=== PATIENT | male | born 1975 | race Caucasian/White ===

== ENCOUNTER → 2020-01-22 | Outpatient (CLI) | payer OTHER ==
--- NOTE | 2020-01-22 11:28 | REP ---
KUB ABDOMEN AND PELVIS: Two KUB films of abdomen and pelvis performed. Bowel gas pattern is normal. Mild scattered fecal material is seen throughout the colon. No dilated small bowel loops are seen. There are a few phleboliths in the pelvis. The visualized osseous structures are unremarkable. IMPRESSION: Mild scattered fecal material throughout the colon. No evidence of bowel obstruction. Electronically Signed by Duran Yee MD 01/22/2020 12:48 P
== END ==
LOC: M WUC 10:04
PROVIDERS: ATTEND Physician Assistant
DX: K59.00 Constipation, unspecified (principal); R10.84 Generalized abdominal pain

== ENCOUNTER 2020-10-11 01:18 | Emergency (ER) | payer MEDICAID, SELFPAY ==
[~2020-10-11] VITALS: Ht 175.3 cm; Wt 88.6 kg
[2020-10-11] MEDS ORDERED: OXAZEPAM 15 MG CAP PO ONE (02:15)
--- NOTE | 2020-10-11 02:33 | ECGEPIP ---
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
[2020-10-11 02:48] LABS: BASO # 0.1 10^3/uL (0.0-0.2); BASO % 1.2 % (0.0-1.0); EOS # 0.1 10^3/uL (0.0-0.5); HEMATOCRIT 43.3 % (42.0-52.0); HEMOGLOBIN 14.4 g/dl (13.5-17.5); LYMPH % 41.3 % (24.0-44.0); MEAN CORPUSCULAR HEMOGLOBIN 31.9 pg (27.0-33.0); MEAN CORPUSCULAR HGB CONC 33.3 g/dl (32.0-36.5); MEAN CORPUSCULAR VOLUME 95.8 fl (80.0-96.0); MONO # 0.7 10^3/uL (0.0-0.8); MONO % 13.4 % (0.0-5.0); NEUTROPHILS # 2.1 10^3/uL (1.5-8.5); NEUTROPHILS % 41.9 % (36.0-66.0); PLATELET COUNT, AUTOMATED 152 10^3/uL (150-450); RED BLOOD COUNT 4.52 10^6/uL (4.30-6.10); WHITE BLOOD COUNT 4.9 10^3/uL (4.0-10.0)
[2020-10-11 03:24] LABS: ALBUMIN 4.1 GM/DL (3.2-5.2); ALT/SGPT 102 U/L (12-78); BILIRUBIN,DIRECT 0.1 MG/DL (0.0-0.2); BILIRUBIN,TOTAL 0.6 MG/DL (0.2-1.0); BLOOD UREA NITROGEN 4 MG/DL (7-18); CALCIUM LEVEL 8.8 MG/DL (8.5-10.1); CARBON DIOXIDE LEVEL 25 MEQ/L (21-32); CHLORIDE LEVEL 107 MEQ/L (98-107); CK-MB VALUE MASS 2.8 NG/ML (<3.6); CPK CREATINE PHOSPHOKINASE 398 U/L (39-308); CREATININE FOR GFR 0.75 MG/DL (0.70-1.30); ETHYL ALCOHOL (ETHANOL) 0.402 % (0.000-0.010); GLOMERULAR FILTRATION RATE > 60.0 (>60); GLUCOSE, FASTING 112 MG/DL (70-100); LIPASE 297 U/L (73-393); POTASSIUM SERUM 4.6 MEQ/L (3.5-5.1); SODIUM LEVEL 143 MEQ/L (136-145); TOTAL PROTEIN 8.6 GM/DL (6.4-8.2); TROPONIN I < 0.02 NG/ML (< 0.10)
[2020-10-11 03:45] VITALS: BP 137/86
== END 2020-10-11 04:27 | disposition home or self-care (01) ==
LOC: M ED 01:18
DX: F10.129 Alcohol abuse with intoxication, unspecified (principal); K70.9 Alcoholic liver disease, unspecified; R73.03 Prediabetes; I10 Essential (primary) hypertension; F17.200 Nicotine dependence, unspecified, uncomplicated; F12.10 Cannabis abuse, uncomplicated
CPT/HCPCS: 80048; 80076; 82550; 82553; 83036; 83690; 84443; 85025; 93005; 99284; G0480

== ENCOUNTER 2022-02-21 13:36 | Emergency (ER) | payer MEDICAID, OTHER ==
[~2022-02-21] VITALS: Ht 175.3 cm; Wt 84.1 kg
[2022-02-21 14:45] LABS: MEAN CORPUSCULAR HEMOGLOBIN 28.8 pg (27.0-33.0); MEAN CORPUSCULAR HGB CONC 32.6 g/dl (32.0-36.5); MEAN CORPUSCULAR VOLUME 88.5 fl (80.0-96.0); PLATELET COUNT, AUTOMATED 296 10^3/uL (150-450); RED BLOOD COUNT 4.86 10^6/uL (4.30-6.10)
[2022-02-21 15:12] LABS: AMPHETAMINES LEVEL URINE NEGATIVE (NEGATIVE); BARBITURATES URINE NEGATIVE (NEGATIVE); BENZODIAZEPINES URINE NEGATIVE (NEGATIVE); CANNABINOIDS URINE POSITIVE (NEGATIVE); COCAINE METABOLITE URINE NEGATIVE (NEGATIVE); METHADONE URINE NEGATIVE (NEGATIVE); OPIATES URINE NEGATIVE (NEGATIVE); PHENCYCLIDINE URINE NEGATIVE (NEGATIVE)
[2022-02-21 15:18] LABS: ACETAMINOPHEN LEVEL < 2.0 UG/ML (10.0-30.0); ALBUMIN 4.2 GM/DL (3.2-5.2); ALT/SGPT 177 U/L (12-78); BILIRUBIN,DIRECT 0.2 MG/DL (0.0-0.2); BILIRUBIN,TOTAL 0.5 MG/DL (0.2-1.0); BLOOD UREA NITROGEN 6 MG/DL (7-18); CALCIUM LEVEL 10.6 MG/DL (8.5-10.1); CARBON DIOXIDE LEVEL 25 MEQ/L (21-32); CHLORIDE LEVEL 104 MEQ/L (98-107); CREATININE FOR GFR 0.97 MG/DL (0.70-1.30); ETHYL ALCOHOL (ETHANOL) 0.231 % (0.000-0.010); FREE T4 0.65 NG/DL (0.76-1.46); GLOMERULAR FILTRATION RATE > 60.0 (>60); GLUCOSE, FASTING 111 MG/DL (70-100); POTASSIUM SERUM 4.6 MEQ/L (3.5-5.1); SALICYLATE LEVEL < 1.7 MG/DL (5.0-30.0); SODIUM LEVEL 138 MEQ/L (136-145); THYROID STIMULATING HORMONE 0.825 uIU/ML (0.358-3.740); TOTAL PROTEIN 8.4 GM/DL (6.4-8.2)
[2022-02-21] MEDS ORDERED: ABIL1TAB11 PO (20:29)
[2022-02-21 21:16] VITALS: BP 170/106
== END 2022-02-21 22:05 | disposition home or self-care (01) ==
LOC: M ED 13:36
DX: F10.10 Alcohol abuse, uncomplicated (principal); Y90.1 Blood alcohol level of 20-39 mg/100 ml; F33.9 Major depressive disorder, recurrent, unspecified; I47.1 Supraventricular tachycardia; F12.20 Cannabis dependence, uncomplicated

== ENCOUNTER 2023-01-05 17:03 | Inpatient (IN) | payer OTHER ==
[~2023-01-05] VITALS: Ht 175.3 cm; Wt 88.3 kg
[~2023-01-05 17:03] MED LIST: ABIL1TAB11 PO; FOLIC ACID 1MG TAB PO SCH; MULTIVITAMINS/MINERALS THERAP 1 TAB PO SCH
[2023-01-05] MEDS ORDERED: LORazepam 2 MG/ML 1ML VIAL IV STA (17:46)
[2023-01-05] MEDS ORDERED: LORazepam 2 MG TAB PO PRN ×2 (17:50→19:35)
[2023-01-05] MEDS ORDERED: levETIRAcetam INJection 1,000 MG in D5W 100 ML IV ONE (17:50)
[2023-01-05] MEDS ORDERED: NS 1,000 ML IV ONE (17:50)
[2023-01-05] MEDS ORDERED: ONDANSETRON 4MG 2ML VIAL IV ONE (18:20)
[2023-01-05 18:23] LABS: BASO # 0.1 10^3/uL (0.0-0.2); BASO % 0.7 % (0.0-1.0); EOS % 0.4 % (0.0-3.0); HEMOGLOBIN 14.2 g/dl (13.5-17.5); LYMPH # 0.7 10^3/uL (1.5-5.0); LYMPH % 9.6 % (24.0-44.0); MEAN CORPUSCULAR HEMOGLOBIN 33.6 pg (27.0-33.0); MEAN CORPUSCULAR HGB CONC 35.5 g/dl (32.0-36.5); MEAN CORPUSCULAR VOLUME 94.6 fl (80.0-96.0); MONO # 0.8 10^3/uL (0.0-0.8); MONO % 11.1 % (2.0-8.0); NEUTROPHILS # 5.4 10^3/uL (1.5-8.5); NEUTROPHILS % 77.9 % (36.0-66.0); PLATELET COUNT, AUTOMATED 134 10^3/uL (150-450); RED BLOOD COUNT 4.23 10^6/uL (4.30-6.10); WHITE BLOOD COUNT 6.9 10^3/uL (4.0-10.0)
[2023-01-05] MEDS ORDERED: LABETALOL 100MG/20ML VIAL IV STA (18:23)
[2023-01-05 18:43] VITALS: BP 168/105
[2023-01-05 18:53] LABS: ALBUMIN 4.5 G/DL (3.2-5.2); ALKALINE PHOSPHATASE 61 U/L (46-116); ALT/SGPT 145 U/L (7.0-40); AST/SGOT 172 U/L (<34); BILIRUBIN,DIRECT 0.6 MG/DL (<0.4); BILIRUBIN,TOTAL 1.5 MG/DL (0.3-1.2); BLOOD UREA NITROGEN 7 MG/DL (9-23); CARBON DIOXIDE LEVEL 22 MMOL/L (20-31); CHLORIDE LEVEL 92 MMOL/L (98-107); CREATININE FOR GFR 0.76 MG/DL (0.70-1.30); GLOMERULAR FILTRATION RATE > 60.0 (>60); GLUCOSE, FASTING 102 MG/DL (60-100); POTASSIUM SERUM 4.3 MMOL/L (3.5-5.1); SODIUM LEVEL 130 MMOL/L (136-145); TOTAL PROTEIN 8.3 G/DL (5.7-8.2)
[2023-01-05 19:04] LABS: CPK CREATINE PHOSPHOKINASE 240 U/L (46-171)
[2023-01-05 19:06] LABS: RSV AMPLIFICATION NEGATIVE (NEGATIVE)
[2023-01-05] MEDS ORDERED: HOME MED LIST COMPLETE! XX SCH (19:15)
[2023-01-05] MEDS ORDERED: LORazepam 2 MG/ML 1ML VIAL IV ONE (19:35)
[2023-01-05] MEDS ORDERED: MULTIVITAMIN -ADULT INJECTION 10 ML, THIAMINE INJection 100 MG, FOLIC ACID 1 MG in NS 1... IV ONE (19:35)
[2023-01-05] MEDS ORDERED: CHLORASEPTIC SPRAY MT PRN (19:35)
[2023-01-05 20:32] LABS: HEMOGLOBIN A1c 5.3 % (4.0-6.0)
[2023-01-05 20:42] LABS: LIPASE 59 U/L (12-53)
[2023-01-05] MEDS ORDERED: THIAMINE 100 MG TAB PO SCH (21:00)
[2023-01-05] MEDS: OXAZEPAM 15MG CAP PO SCH (21:40)
[2023-01-05 21:58] VITALS: BP 148/86
[2023-01-05 22:00] VITALS: BP 148/86; O2SAT 96
[2023-01-05 22:07] LABS: MAGNESIUM LEVEL 1.5 MG/DL (1.8-2.4)
[2023-01-05 23:00] VITALS: O2SAT 94
[2023-01-05 23:41] VITALS: BP 137/89
[2023-01-06] VITALS (27 sets, daily range): BP systolic 126–148; BP diastolic 75–93; O2SAT 91–98
[2023-01-06] MEDS: OXAZEPAM 15MG CAP PO SCH ×2 (04:36→16:38)
[2023-01-06 05:49] LABS: HEMATOCRIT 38.7 % (42.0-52.0); HEMOGLOBIN 13.1 g/dl (13.5-17.5); MEAN CORPUSCULAR HEMOGLOBIN 32.6 pg (27.0-33.0); MEAN CORPUSCULAR HGB CONC 33.9 g/dl (32.0-36.5); MEAN CORPUSCULAR VOLUME 96.3 fl (80.0-96.0); PLATELET COUNT, AUTOMATED 117 10^3/uL (150-450); RED BLOOD COUNT 4.02 10^6/uL (4.30-6.10)
[2023-01-06 06:21] LABS: ALBUMIN 3.7 G/DL (3.2-5.2); ALKALINE PHOSPHATASE 51 U/L (46-116); ALT/SGPT 109 U/L (7.0-40); AST/SGOT 127 U/L (<34); BILIRUBIN,TOTAL 1.6 MG/DL (0.3-1.2); BLOOD UREA NITROGEN 6 MG/DL (9-23); CALCIUM LEVEL 9.7 MG/DL (8.5-10.1); CARBON DIOXIDE LEVEL 26 MMOL/L (20-31); CHLORIDE LEVEL 103 MMOL/L (98-107); CREATININE FOR GFR 0.84 MG/DL (0.70-1.30); GLOMERULAR FILTRATION RATE > 60.0 (>60); GLUCOSE, FASTING 84 MG/DL (60-100); MAGNESIUM LEVEL 1.8 MG/DL (1.8-2.4); POTASSIUM SERUM 4.3 MMOL/L (3.5-5.1); SODIUM LEVEL 137 MMOL/L (136-145)
[2023-01-06] MEDS: MULTIVITAMINS/MINERALS THERAP 1 TAB PO SCH (08:47)
[2023-01-06] MEDS: FOLIC ACID 1MG TAB PO SCH (08:47)
[2023-01-06] MEDS: THIAMINE 100 MG TAB PO SCH ×2 (08:50→21:13)
[2023-01-07] VITALS (12 sets, daily range): BP systolic 115–123; BP diastolic 77–87; O2SAT 94–96
[2023-01-07] MEDS: OXAZEPAM 15MG CAP PO SCH (00:41)
[2023-01-07] MEDS ORDERED: OXAZEPAM 15MG CAP PO SCH ×2 (02:00→06:00)
[2023-01-07] MEDS: FOLIC ACID 1MG TAB PO SCH (09:11)
[2023-01-07] MEDS: MULTIVITAMINS/MINERALS THERAP 1 TAB PO SCH (09:11)
[2023-01-07] MEDS: THIAMINE 100 MG TAB PO SCH (09:12)
[2023-01-07] MEDS ORDERED: VITMTA PO (11:03)
[2023-01-07] MEDS ORDERED: THIA100TA PO (11:03)
[2023-01-07] MEDS ORDERED: FOLI1TAB11 PO (11:03)
== END 2023-01-07 11:56 | disposition home health service (06) | DRG 775 ==
LOC: M ED 17:03 → M ED INP 19:34 → M PCU 21:49
PROVIDERS: ADMIT Internal Medicine; ATTEND Internal Medicine
DX: F10.231 Alcohol dependence with withdrawal delirium (principal); I10 Essential (primary) hypertension; R74.01 Elevation of levels of liver transaminase levels; F41.8 Other specified anxiety disorders; R56.9 Unspecified convulsions; S02.5XXA Fracture of tooth (traumatic), initial encounter for closed fracture; Y92.009 Unspecified place in unspecified non-institutional (private) residence as the place of occurrence of the external cause; E80.6 Other disorders of bilirubin metabolism; Z20.822 Contact with and (suspected) exposure to COVID-19

== ENCOUNTER 2024-11-27 04:53 | Emergency (ER) | payer OTHER ==
[~2024-11-27] VITALS: Ht 175.3 cm; Wt 81.8 kg
[~2024-11-27 04:53] MED LIST changes: +FOLI1TAB11 PO; -FOLIC ACID 1MG TAB PO SCH; -MULTIVITAMINS/MINERALS THERAP 1 TAB PO SCH; +THIA100TA PO; +VITMTA PO
[2024-11-27 05:31] LABS: HEMATOCRIT 43.5 % (42.0-52.0); HEMOGLOBIN 14.6 g/dl (13.5-17.5); MEAN CORPUSCULAR HEMOGLOBIN 29.6 pg (27.0-33.0); MEAN CORPUSCULAR HGB CONC 33.6 g/dl (32.0-36.5); MEAN CORPUSCULAR VOLUME 88.1 fl (80.0-96.0); PLATELET COUNT, AUTOMATED 130 10^3/uL (150-450); RED BLOOD COUNT 4.94 10^6/uL (4.30-6.10); WHITE BLOOD COUNT 9.7 10^3/uL (4.0-10.0)
[2024-11-27 05:53] LABS: AMPHETAMINES LEVEL URINE NEGATIVE (NEGATIVE); BARBITURATES URINE NEGATIVE (NEGATIVE); BENZODIAZEPINES URINE NEGATIVE (NEGATIVE); CANNABINOIDS URINE NEGATIVE (NEGATIVE); COCAINE METABOLITE URINE NEGATIVE (NEGATIVE); METHADONE URINE NEGATIVE (NEGATIVE); PHENCYCLIDINE URINE NEGATIVE (NEGATIVE)
[2024-11-27 05:54] LABS: ETHYL ALCOHOL (ETHANOL) 0.265 % (0.000-0.010)
[2024-11-27 05:56] LABS: ALBUMIN 4.7 G/DL (3.2-5.2); ALKALINE PHOSPHATASE 78 U/L (40-129); ALT/SGPT 71 U/L (7.0-40); AST/SGOT 138 U/L (<34); BILIRUBIN,DIRECT 0.4 MG/DL (<0.4); BLOOD UREA NITROGEN 11 MG/DL (9-23); CALCIUM LEVEL 9.4 MG/DL (8.5-10.1); CARBON DIOXIDE LEVEL 21 MMOL/L (20-31); CHLORIDE LEVEL 100 MMOL/L (98-107); CREATININE FOR GFR 0.73 MG/DL (0.70-1.30); GLOMERULAR FILTRATION RATE > 60.0 (>60); GLUCOSE, FASTING 136 MG/DL (60-100); POTASSIUM SERUM 3.6 MMOL/L (3.5-5.1); SALICYLATE LEVEL < 3.0 MG/DL (<30); SODIUM LEVEL 140 MMOL/L (136-145); TOTAL PROTEIN 9.3 G/DL (5.7-8.2)
[2024-11-27 05:58] LABS: THYROID STIMULATING HORMONE 0.962 uIU/ML (0.55-4.78)
[2024-11-27 06:00] LABS: OPIATES URINE POSITIVE (NEGATIVE)
[2024-11-27] MEDS: THIAMINE 100 MG TAB PO SCH (07:29)
[2024-11-27] MEDS: ONDANSETRON 4MG ORAL DISINTEGRATING TAB PO PRN (07:50)
[2024-11-27] MEDS: LORazepam 2 MG TAB PO PRN (07:50)
[2024-11-27] MEDS: FOLIC ACID 1MG TAB PO SCH (08:50)
[2024-11-27] MEDS: MULTIVITAMINS/MINERALS THERAP 1 TAB PO SCH (08:50)
[2024-11-27 14:41] VITALS: BP 131/90; TEMP 100.2; O2SAT 100
== END 2024-11-27 14:56 | disposition home or self-care (01) ==
LOC: M ED 04:53
DX: F10.120 Alcohol abuse with intoxication, uncomplicated (principal); F32.A Depression, unspecified; F17.290 Nicotine dependence, other tobacco product, uncomplicated; F15.10 Other stimulant abuse, uncomplicated; Z79.810 Long term (current) use of selective estrogen receptor modulators (SERMs)

== ENCOUNTER → 2024-12-14 | Outpatient (CLI) | payer OTHER | LOC: M OUTALCOH 08:27 | PROVIDERS: ATTEND Psychiatry & Neurology Psychiatry | DX: F10.10 Alcohol abuse, uncomplicated (principal) ==

== ENCOUNTER 2025-01-13 14:41 | Outpatient (RCR) | payer OTHER | END 2025-01-17 | LOC: M OUTALCOH 14:41 | PROVIDERS: ATTEND Psychiatry & Neurology Psychiatry | DX: F10.10 Alcohol abuse, uncomplicated (principal) ==

== ENCOUNTER 2025-02-15 15:53 | Outpatient (RCR) | payer OTHER | END 2025-02-16 | LOC: M OUTALCOH 15:53 | PROVIDERS: ATTEND Psychiatry & Neurology Psychiatry | DX: F10.10 Alcohol abuse, uncomplicated (principal) ==